=== PATIENT | male | born 1950 | race Caucasian/White ===

== ENCOUNTER → 2020-07-14 08:12 | Outpatient (CLI) | payer MEDICARE, OTHER, SELFPAY ==
--- NOTE | 2020-07-14 08:15 | US_ITS ---
PROCEDURE: US ABD. AORTA SCREENING CLINICAL INDICATION: AAA SCREENING COMPARISON: No exams were available for comparison FINDINGS: Atherosclerotic plaque involves the aorta and iliac vessels. The upper abdominal aorta measures 2.4 with the mid abdominal aorta at 2 cm cm with some mild ectasia of the lower abdominal aorta at 2.5 cm. The common iliacs demonstrate some mild plaque but no significant dilatation. IMPRESSION: Atherosclerotic changes with mild dilatation of the lower abdominal aorta at 2.5 cm. Dictated by: Haseeb Jennings MD 07/14/2020 17:28 Haseeb Jennings MD in [place] 07/14/2020 17:28
== END ==
PROVIDERS: PCP Family Medicine; Visit Provider Family Medicine
DX: Z13.6 Encounter for screening for cardiovascular disorders (principal); Z87.891 Personal history of nicotine dependence
CPT/HCPCS: 76705

== ENCOUNTER → 2020-08-11 09:17 | Outpatient (CLI) | payer MEDICARE, OTHER, SELFPAY ==
[2020-08-11 12:28] LABS: Coronavirus 19 IgG Antibody Negative (Negative); Coronavirus 19 IgM Antibody Negative (Negative)
== END ==
PROVIDERS: Visit Provider Surgery
DX: Z01.812 Encounter for preprocedural laboratory examination (principal); Z11.52 Encounter for screening for COVID-19; Z12.11 Encounter for screening for malignant neoplasm of colon; Z86.010 Personal history of colon polyps
CPT/HCPCS: 86328

== ENCOUNTER 2020-08-13 06:54 | Day surgery (SDC) | payer MEDICARE, SELFPAY ==
[2020-08-11 09:58] VITALS: BMI 19.2
[2020-08-13 07:16] VITALS: BP 156/75; PULSE 74; RESP 18; TEMP 36.1; O2SAT 99
[2020-08-13 07:54] VITALS: O2SAT 99
--- NOTE | 2020-08-13 08:20 | HMH.ANESCL ---
[facility] Anesthesia Checklist - Structural Data Admitted From: Home Planned Operative Procedure/s: colonoscopy Consent for Planned Operative Procedure(s) Verified: Yes - Airway Assessment C-Spine Mobility Assessed: Yes TMJ Mobility Assessed: Yes Dentition: Poor Dentition - Neurological Assessment Level of Consciousness: Awake, Alert, Appropriate - Anesthesia Plan Anesthesia Risk discussed: Yes Anesthesia Plan: Verified ASA Class: II Anesthesia Type: MAC [facility] History I have reviewed the patient's past medical history: Yes Medical History: Denies:: Cancer, Diabetes Mellitus Type 1, Diabetes Mellitus Type 2, Internal Pacemaker, MRSA, Seizures *Have you ever received a pneumonia vaccine?: Yes *Have you received a flu vaccine this season?: Yes Anesthesia experience/problems:: none Other Surgeries: Yes: Colonoscopy. No: Pacemaker Amputation: No Fractures: No - *Social History Last grade of school completed: High school graduate Smoking Status: Current every day smoker Tobacco Type: pipe # Packs/Day (cigarettes): 1 Alcohol Intake: never Substance Use Type: denies use *Occupational Status:: retired Housing: house Household Members: spouse, family *Travel in the last 8 weeks: None Family Hx:: No significant family history
[2020-08-13 08:35] VITALS: BP 91/61; PULSE 73; RESP 18; TEMP 36.2; O2SAT 97
--- NOTE | 2020-08-13 08:35 | P.PCN_ITS ---
- Procedure: Date: 08/13/20 Patient Date of :: 1950 Procedure Performed:: Colonoscopy with polypectomy by means other than snare Indications:: History of colon polyps Performing Provider:: Messi Shelley MD Referring Provider:: Dr. Rodriguez Sedation:: Monitored anesthesia care Procedure:: After informed consent was obtained the patient was taken to the endoscopy suite. Sedation ensued after the patient was transferred to the left lateral decubitus position. Pulse, blood pressure, and oxygen saturation were monitored throughout the procedure. Digital rectal exam revealed no significant abnormality. The colonoscope was placed in position. The entire colon was evaluated. The colonoscope was carefully removed and the patient was transfer red to recovery in stable condition. Please see findings and specimens below for detail. Findings:: Bowel preparation relatively fair Hemorrhoidal cushions with mild inflammatory changes Significant colonic spasticity (particularly sigmoid) Moderate tortuosity Small polyp at 35 cm Specimens:: Polyp at 35 cm Recommendations:: Timing of repeat colonoscopy is pending pathology but will likely be between 3-5 years secondary to history of polyps, spasticity, and tortuosity. Complications:: No immediate Estimated blood obtained (mL): 1
[2020-08-13 08:44] VITALS: BP 121/71; PULSE 68; RESP 18; O2SAT 98
[2020-08-13 08:55] VITALS: BP 95/66; PULSE 67; RESP 18; O2SAT 98
[2020-08-13 09:04] VITALS: BP 94/65; PULSE 68; RESP 18; O2SAT 96
== END 2020-08-13 09:07 | disposition home or self-care (01) ==
LOC: OUTP 06:58
PROVIDERS: PCP Family Medicine; Visit Provider Surgery
PROC: 0DJD8ZZ Inspection of Lower Intestinal Tract, Via Natural or Artificial Opening Endoscopic (ICD-10-PCS; CPT 45380; principal; 2020-08-13 08:00)
DX: Z12.11 Encounter for screening for malignant neoplasm of colon (principal); K63.5 Polyp of colon; K64.9 Unspecified hemorrhoids; K56.2 Volvulus; K58.9 Irritable bowel syndrome, unspecified; Z86.010 Personal history of colon polyps; Z72.0 Tobacco use
CPT/HCPCS: 45380; 88305

== ENCOUNTER → 2020-09-30 10:22 | Outpatient (CLI) | payer MEDICARE, SELFPAY ==
[2020-09-30 10:29] LABS: Microscopic, Urine URINE MICROSCOPIC (MICROSCOPIC)
[2020-09-30 11:00] LABS: Basophils % 0.7 % (0.1-2.0); Eosinophils # 0.3 K/mm3 (0.0-0.4); Eosinophils % 5.1 % (0.1-12.0); Hematocrit 44.6 % (42.0-52.0); Hemoglobin 14.3 g/dL (14.1-18.0); Lymphocytes # 1.7 K/mm3 (0.7-4.5); Lymphocytes % 32.3 % (10-50); Mean Corpuscular Hemoglobin 29.7 pg (27.0-31.2); Mean Corpuscular Volume 92.7 fl (80-94); Mean Platelet Volume 7.5 fl (7.4-10.4); Monocytes # 0.3 K/mm3 (0.1-1.0); Monocytes % 5.4 % (1.7-9.3); Neutrophils # 2.9 K/mm3 (1.8-7.8); Neutrophils % 56.4 % (37.0-80.0); Platelet Count 252 K/mm3 (142-424); Red Blood Count 4.81 M/mm3 (4.60-6.20); White Blood Count 5.1 K/mm3 (4.8-10.8)
[2020-09-30 11:03] LABS: Appearance,Urine CLEAR (Clear); Bilirubin,Urine Negative (Negative); Blood, Urine TRACE-I (Negative); Color,Urine YELLOW (Yellow); Glucose,Urine (UA) Negative (Negative); Ketones,Urine Negative (Negative); Leukocyte Esterase,Urine Negative (Negative); Nitrate,Urine Negative (Negative); Protein,Urine Negative (Negative); Specific Gravity, Urine >= 1.030 (1.005-1.030); Urobilinogen,Urine 0.2 EU/dl (0.2)
[2020-09-30 11:30] LABS: Chloride 108 mmol/L (98-107); Potassium 4.2 mmoL/L (3.5-5.1); Sodium 140 mmol/L (136-145)
[2020-09-30 11:33] LABS: Anion Gap 11.2 mEq/L (5-15); Blood Urea Nitrogen 16 mg/dl (9-20); Carbon Dioxide 25 mmol/L (22.0-30.0); Estimated Glomerular Filt Rate 111 ml/min (>60); GFR (African American) 135 ML/MIN (>60)
[2020-09-30 11:34] LABS: Calcium 9.4 mg/dl (8.4-10.2); Glucose 143 mg/dl (74-100)
[2020-09-30 11:39] LABS: WBC,Urine Occasional #/hpf (0-3)
[2020-09-30 11:42] LABS: Coronavirus 19 IgG Antibody Negative (Negative); Coronavirus 19 IgM Antibody Negative (Negative)
== END ==
PROVIDERS: Visit Provider Surgery
DX: K40.90 Unilateral inguinal hernia, without obstruction or gangrene, not specified as recurrent (principal); D12.6 Benign neoplasm of colon, unspecified; Z01.818 Encounter for other preprocedural examination; Z20.822 Contact with and (suspected) exposure to COVID-19
CPT/HCPCS: 36415; 80048; 81001; 85025; 86328

== ENCOUNTER 2020-10-02 06:07 | Day surgery (SDC) | payer MEDICARE, SELFPAY ==
[2020-09-30 10:47] VITALS: BMI 20.2
[2020-10-02] VITALS (11 sets, daily range): BP systolic 96–143; BP diastolic 61–88; PULSE 53–68; RESP 14–18; TEMP 36.2–36.6; O2SAT 98–100
--- NOTE | 2020-10-02 06:17 | ECG_ITS ---
APPROVED REPORT Exam: Resting ECG HR:58 bpm ECG Measurements Heart Rate 58 AXES CA 226 P 76 QRSd 102 QRS 73 QT 414 T 70 QTc 406 Conclusion Sinus bradycardia with 1st degree AV block Otherwise normal ECG Electronically signed by : Arjun Maynard, 10/02/2020 08:50:32
--- NOTE | 2020-10-02 07:13 | P.PN_ITS ---
[facility] Anesthesia Checklist - Patient Identification Patient Identification: Arm Band - Structural Data Admitted From: Home Planned Operative Procedure/s: Open inguinal hernia repair Consent for Planned Operative Procedure(s) Verified: Yes - NPO Status Verified Time NPO: 12:00 - Additional verifications Anesthesia Reactions: No Hx Blood Transfusions: No Blood Transfusion Reaction: No - Airway Assessment C-Spine Mobility Assessed: Yes TMJ Mobility Assessed: Yes Dentition: Poor Dentition - Neurological Assessment Level of Consciousness: Awake Hx Seizures: No Numbness or tingling in extremities: No - Anesthesia Plan Anesthesia Risk discussed: Yes Anesthesia Plan: Verified ASA Class: II Anesthesia Type: General [facility] History I have reviewed the patient's past medical history: Yes Medical History: Denies:: Cancer, Diabetes Mellitus Type 1, Diabetes Mellitus Type 2, Internal Pacemaker, MRSA, Seizures *Have you ever received a pneumonia vaccine?: Yes *Have you received a flu vaccine this season?: Yes Other Medical History: Denies: Blood Transfusion Reaction Anesthesia experience/problems:: None Other Surgeries: Yes: Appendectomy, Colonoscopy. No: Pacemaker Amputation: No Fractures: No - *Social History Last grade of school completed: High school graduate Smoking Status: Current every day smoker Tobacco Type: pipe # Packs/Day (cigarettes): 1 Alcohol Intake: never Substance Use Type: denies use *Occupational Status:: retired Housing: house Household Members: spouse, family *Travel in the last 8 weeks: Inside the [place] Family Hx:: No significant family history
--- NOTE | 2020-10-02 09:00 | HMH.OPNOTE ---
Date of procedure: 10/02/20 Pre-op Diagnosis:: Recurrent right inguinal hernia (initially repaired in childhood) Post-op Diagnosis:: Same Procedure performed:: Open right inguinal hernia repair Surgeon:: Messi Shelley MD Anesthesia: MELISSA Estimated blood loss (mL): 10 Operative findings:: Moderate thickening of subcutaneous tissue and external aponeurosis secondary to prior surgery Direct defect Operative note:: After informed consent was obtained the patient was taken to the operating room and placed in the supine position. General anesthesia was induced and his abdomen and scrotum/groin were prepped and draped in a sterile fashion. After infiltration with local anesthetic an oblique incision was made in the right groin. The deep subcutaneous tissue was dissected with electrocautery through Rachel's fascia. Significant soft tissue thickening noted. The external aponeurosis which was also very thickened (likely secondary to prior operative intervention) was opened with Metzenbaum scissors to the level of the external ring. The contents of the canal were carefully elevated. No obvious indirect defect noted. A palpable direct defect along the inferior margin of the canal was noted. A PerFix plug was secured with interrupted Ethibond within the defect. The PerFix overlay was then secured to the shelving edge inferiorly and fascial margin superiorly with interrupted 2-0 Ethibond. The external aponeurosis was reapproximated with running Vicryl suture. Rachel's fascia was reapproximated in a similar manner. Skin was then closed with 4-0 Monocryl in a running subcuticular fashion. Steri-Strips were applied and the patient's anesthetic agents were reversed. He was extubated prior to transfer to recovery. Condition: stable Disposition: PACU Specimens:: None Complications:: No immediate
--- NOTE | 2020-10-02 09:01 | HMH.ANESI ---
[facility] Anesthesia Record Part I Intake, IV Amount: 400 Estimated blood loss (mL): 10 Urine output (mL): 75 Blood Pressure: 124/66 SaO2: 100 Pulse Rate: 60 Respiratory Rate: 14 Temperature: 97.5 F Patient is:: Drowsy Stable to PACU at:: 08:58
[2020-10-02 09:17] LABS: Microscopic,Cath URINE MICROSCOPIC (MICROSCOPIC)
[2020-10-02 09:42] LABS: Appearance,Urine/Cath CLEAR (Clear); Bilirubin,Cath Negative (Negative); Blood, Urine/Cath TRACE-I (Negative); Color,Urine/Cath YELLOW (Yellow); Glucose,Urine/Cath (UA) Negative (Negative); Ketones,Urine/Cath Negative (Negative); Leukocyte Esterase,Cath Negative (Negative); Nitrate,Cath Negative (Negative); PH,Urine/Cath 6.5 (5.0-8.5); Protein,Urine/Cath Negative (Negative); Specific Gravity, Urine/Cath 1.025 (1.005-1.030); Urobilinogen,Cath 0.2 EU/dl (0.2)
[2020-10-02 09:54] LABS: RBC,Urine/Cath Occasional # /hpf (0-3); WBC,Urine/Cath Occasional #/hpf (0-3)
--- NOTE | 2020-10-02 11:32 | HMH.ANESII ---
[facility] Anesthesia Record Part II Discharge Time: 09:28 Destination: Surgical Day Care (OP Surgery) PACU nurse assessment reviewed?: Yes Patient Condition:: Good Anesthesia Complications:: None Swallowing reflex intact?: Yes Cyanosis?: No Blood Pressure: 127/88 Pulse Rate: 68 Temperature: 97.2 F Mental Status: Alert & Oriented Pain level:: 0 Nausea and/or vomitting:: None Intake, IV Amount: 800
== END 2020-10-02 10:14 | disposition home or self-care (01) ==
PROVIDERS: PCP Family Medicine; Visit Provider Surgery
PROC: (CPT 49520; principal; 2020-10-02 07:30)
DX: K40.91 Unilateral inguinal hernia, without obstruction or gangrene, recurrent (principal)
CPT/HCPCS: 49520; 81001; 96374; J0131

== ENCOUNTER 2023-03-01 21:22 | Observation (INO) | payer MEDICARE, SELFPAY ==
[2023-03-01 21:22] VITALS: BP 152/98; PULSE 76; RESP 18; TEMP 36.4; O2SAT 96
[2023-03-01 21:29] VITALS: BMI 18.2
--- NOTE | 2023-03-01 21:30 | XR_ITS ---
PROCEDURE INFORMATION: Exam: XR Pelvis Exam date and time: 03/01/2023 9:28 PM Age: 73 years old Clinical indication: Injury or trauma; Blunt trauma (contusions or hematomas); Does not apply; Pelvic region; Patient HX: Fall from roof TECHNIQUE: Imaging protocol: Radiologic exam of the pelvis. Views: 1 or 2 view. COMPARISON: No relevant prior studies available. FINDINGS: Bones/joints: There are minimal degenerative changes of the hips. There are partially visualized degenerative changes of the lumbar spine. No acute fracture or dislocation is identified. Soft tissues: Unremarkable. IMPRESSION: Degenerative disease without acute injury identified.
--- NOTE | 2023-03-01 21:30 | XR_ITS ---
PROCEDURE INFORMATION: Exam: XR Chest Exam date and time: 03/01/2023 9:27 PM Age: 73 years old Clinical indication: Injury or trauma; Blunt trauma (contusions or hematomas); Patient HX: Fall from roof TECHNIQUE: Imaging protocol: Radiologic exam of the chest. Views: 1 view. COMPARISON: No relevant prior studies available. FINDINGS: Lungs: Unremarkable. No consolidation. Pleural spaces: Unremarkable. No pleural effusion. No pneumothorax. Heart/Mediastinum: Unremarkable. No cardiomegaly. Bones/joints: Unremarkable. IMPRESSION: No acute findings.
--- NOTE | 2023-03-01 21:31 | CT_ITS ---
PROCEDURE INFORMATION: Exam: CT Lumbar Spine Without Contrast Exam date and time: 03/01/2023 9:59 PM Age: 73 years old Clinical indication: Injury or trauma; Patient HX: Fall from roof TECHNIQUE: Imaging protocol: Computed tomography of the lumbar spine without contrast. Radiation optimization: All CT scans at this facility use at least one of these dose optimization techniques: automated exposure control; mA and/or kV adjustment per patient size (includes targeted exams where dose is matched to clinical indication); or iterative reconstruction. REPORTING DATA: Count of CT and Cardiac NM exams in prior 12 months: This patient has received 0 known CTs and 0 known cardiac nuclear medicine studies in the 12 months prior to the current study. COMPARISON: CR XR PELVIS 1-2V 03/01/2023 9:28 PM FINDINGS: Bones/joints: There is loss of intervertebral disc space and vacuum phenomenon most pronounced at L4-L5 and L5-S1. Vasculature: There is atherosclerotic disease of the visualized aorta and its major branch vessels. Soft tissues: Unremarkable. IMPRESSION: Multilevel degenerative change without acute injury identified.
--- NOTE | 2023-03-01 21:31 | XR_ITS ---
PROCEDURE INFORMATION: Exam: XR Left Tibia and Fibula Exam date and time: 03/01/2023 9:31 PM Age: 73 years old Clinical indication: Injury or trauma; Blunt trauma; Lower leg; Left; Patient HX: Fall from roof TECHNIQUE: Imaging protocol: Radiologic exam of the left tibia and fibula. Views: 2 views. COMPARISON: No relevant prior studies available. FINDINGS: Bones/joints: Partial visualization nondisplaced calcaneal fracture. No additional fracture or dislocation. Soft tissues: Normal. IMPRESSION: Nondisplaced calcaneal fracture which is partially imaged.
--- NOTE | 2023-03-01 21:31 | XR_ITS ---
PROCEDURE INFORMATION: Exam: XR Right Tibia and Fibula Exam date and time: 03/01/2023 9:31 PM Age: 73 years old Clinical indication: Injury or trauma; Blunt trauma; Lower leg; Right; Patient HX: Fall from roof TECHNIQUE: Imaging protocol: Radiologic exam of the right tibia and fibula. Views: 2 views. COMPARISON: No relevant prior studies available. FINDINGS: Bones/joints: Partially visualized nondisplaced calcaneal fracture. No additional fracture or dislocation is seen. Soft tissues: Normal. IMPRESSION: Partially visualized nondisplaced calcaneal fracture.
--- NOTE | 2023-03-01 21:31 | XR_ITS ---
PROCEDURE INFORMATION: Exam: XR Left Foot Exam date and time: 03/01/2023 9:31 PM Age: 73 years old Clinical indication: Injury or trauma; Blunt trauma; Foot; Left; Patient HX: Fall from roof TECHNIQUE: Imaging protocol: Radiologic exam of the left foot. Views: 3 or more views. COMPARISON: No relevant prior studies available. FINDINGS: Bones/joints: Impacted and comminuted fracture of the calcaneus is better evaluated on radiographs of the ankle. Soft tissues: There is pronounced soft tissue swelling of the lateral aspect foot. IMPRESSION: Impacted and comminuted fracture of the calcaneus.
--- NOTE | 2023-03-01 21:31 | XR_ITS ---
PROCEDURE INFORMATION: Exam: XR Right Ankle Exam date and time: 03/01/2023 9:31 PM Age: 73 years old Clinical indication: Injury or trauma; Blunt trauma; Ankle; Right; Patient HX: Fall from roof TECHNIQUE: Imaging protocol: Radiologic exam of the right ankle. Views: 3 or more views. COMPARISON: No relevant prior studies available. FINDINGS: Bones/joints: Partially visualized nondisplaced fracture of the calcaneus. Soft tissues: Moderate soft tissue swelling about the foot. No additional fracture or dislocation seen. IMPRESSION: Partially visualized nondisplaced fracture of the calcaneus.
--- NOTE | 2023-03-01 21:31 | XR_ITS ---
PROCEDURE INFORMATION: Exam: XR Left Ankle Exam date and time: 03/01/2023 9:31 PM Age: 73 years old Clinical indication: Injury or trauma; Blunt trauma; Ankle; Left; Patient HX: Fall from roof TECHNIQUE: Imaging protocol: Radiologic exam of the left ankle. Views: 3 or more views. COMPARISON: No relevant prior studies available. FINDINGS: Bones/joints: There is a small superior calcaneal enthesophyte. There is an impacted comminuted fracture of the calcaneus with associated soft tissue swelling. Soft tissues: See Bones/joints finding. IMPRESSION: There is an impacted comminuted fracture of the calcaneus with associated soft tissue swelling.
--- NOTE | 2023-03-01 21:31 | XR_ITS ---
PROCEDURE INFORMATION: Exam: XR Right Foot Exam date and time: 03/01/2023 9:31 PM Age: 73 years old Clinical indication: Injury or trauma; Blunt trauma; Foot; Right; Patient HX: Fall from roof; Additional info: [place] TECHNIQUE: Imaging protocol: Radiologic exam of the right foot. Views: 3 or more views. COMPARISON: No relevant prior studies available. FINDINGS: Bones/joints: There is a nondisplaced fracture of the posterosuperior calcaneus. Additional lucency through the mid calcaneus suggest additional fracture lines. Soft tissues: Normal. IMPRESSION: Nondisplaced fracture of the calcaneus.
[2023-03-01 21:38] LABS: Basophils # 0.1 K/mm3 (0-0.2); Basophils % 0.7 % (0.1-2.0); Eosinophils # 0.2 K/mm3 (0.0-0.4); Eosinophils % 2.3 % (0.1-12.0); Hematocrit 44.2 % (42.0-52.0); Hemoglobin 13.8 g/dL (14.1-18.0); Lymphocytes % 28.5 % (10-50); Mean Corpuscular HGB Conc 31.3 g/dL (31.8-35.4); Mean Corpuscular Hemoglobin 28.6 pg (27.0-31.2); Mean Corpuscular Volume 91.5 fl (80-94); Mean Platelet Volume 7.8 fl (7.4-10.4); Monocytes # 0.4 K/mm3 (0.1-1.0); Monocytes % 5.7 % (1.7-9.3); Neutrophils # 4.3 K/mm3 (1.8-7.8); Neutrophils % 62.7 % (37.0-80.0); Platelet Count 283 K/mm3 (142-424); Red Blood Count 4.84 M/mm3 (4.60-6.20); Red Cell Distribution Width 13.9 % (11.5-17.5); White Blood Count 6.9 K/mm3 (4.8-10.8)
--- NOTE | 2023-03-01 21:44 | HMH.EDTRAUMA ---
Discharge Plan Disposition Patient Disposition: Admitted as Observation Clinical Impressions Clinical Impression: Calcaneus fracture, left, Calcaneus fracture, right Discharge ED Provider: Naveen Alves Trauma Alert The Trauma Alert Section documentation for [id number] SarbjitJhony was populated with data that defaulted in from the pulp and paper tester in the Trauma Alert Triage Assessment on _Reg Service Date] to provide within this report, the status of the patient on arrival to the ED during the Trauma Alert. Height/Weight/BMI Height: 1.73 m Weight: 54.431 kg Weight Measurement Method: Stated by Patient Body Mass Index: 18.2 Trauma HPI General Chief Complaint: Trauma Alert Stated Complaint: trauma/fall from roof Time Seen by Provider: 03/01/23 21:22 History of Present Illness HPI narrative: Patient is a 73-year-old male with no pertinent past medical history presents emergency department for evaluation of traumatic injury sustained in a fall. Patient was approximate 12 feet high on a roof when he fell off landing on both of his ankles. Patient denies hitting his back, loss of consciousness, striking his head, blood thinners, trauma to his chest or arms. He states that this whole impact was his bilateral heels. He had instant inability to bear weight and severe pain in bilateral feet. Denies back pain. No other acute complaints at this time. Related Data Allergies Allergy/AdvReac Type Severity Reaction Status Date / Time No Known Allergies Allergy Verified 10/07/20 14:26 [facility] Disclaimer: The information contained in this section may have been updated after the patient was seen, as this information can be updated by other users. Social History Smoking Status: Current every day smoker tobacco type: pipe second hand exposure: Yes alcohol intake: never substance use type: denies use current occupational status: retired Travel in the last 8 weeks: None household members: spouse and family housing: house current occupational exposures/hazards: No caffeine: Yes ROS Obtained: Yes Systems reviewed as appropriate & no additional complaints except as documented Physical Exam General General appearance: alert and in no apparent distress Head Head exam: atraumatic and normocephalic Eye Eye exam: Present PERRL and EOMI ENT ENT exam: Present mucous membranes moist Neck Neck exam: Present normal inspection and full ROM; Absent tenderness Chest Chest inspection: Present normal inspection and symmetric chest wall rise Respiratory Respiratory exam: Present normal lung sounds bilaterally; Absent respiratory distress Cardiovascular Cardiovascular exam: Present regular rate and normal rhythm Abdominal Exam Abdominal exam: Present soft; Absent tenderness Extremities Exam Extremities exam: Present other (Circumferential swelling and tenderness bilateral ankles. Palpable right dorsal pedal pulse, dopplerable left dorsal pedal pulse. Palpable bilateral posterior tibial pulses.) Back Exam Back exam: Present other (No spinal tenderness) Neurological Exam Neurological exam: Present alert, oriented X3 and CN II-XII intact Psychiatric Psychiatric exam: Present normal affect Skin Skin exam: Present warm and dry Medical Decision Making Alexander Inquiry Pt receiving controlled substance: No Vital Signs: 03/01/23 21:22 03/01/23 22:10 03/01/23 22:30 Temperature 97.6 F Temperature Source Oral Pulse Rate 82 74 Pulse Rate [Left] 76 Respiratory Rate 18 17 10 L Blood Pressure 147/87 H 150/79 H Blood Pressure [Left Arm] 152/98 H Blood Pressure Mean 113 Blood Pressure Mean [Left Arm] 116 Blood Pressure Source [Left Arm] Manual Cuff/ Auscultation Blood Pressure Position [Left Arm] Supine 02 Sat by Pulse Oximetry 96 98 96 Oxygen Delivery Method Room Air Room Air 03/01/23 22:52 Temperature 97.9 F Temperature Source Oral Pulse Rate 76 Pulse Rate [Left] Respirato
[2023-03-01 21:46] VITALS: BMI 18.2
[2023-03-01 21:49] LABS: Anion Gap 12.3 mEq/L (5-15); Blood Urea Nitrogen 18 mg/dl (9-20); Calcium 9.2 mg/dl (8.4-10.2); Carbon Dioxide 27 mmol/L (22.0-30.0); Chloride 107 mmol/L (98-107); Creatinine Clearance Estimated 51 mL/min (50-200); Estimated Glomerular Filt Rate 83 ml/min (>60); GFR (African American) 100 ML/MIN (>60); Glucose 110 mg/dl (74-100); Potassium 4.3 mmoL/L (3.5-5.1); Sodium 142 mmol/L (136-145)
[2023-03-01 21:54] LABS: INR 1.02 (0.9-1.1)
--- NOTE | 2023-03-01 21:57 | XR_ITS ---
PROCEDURE INFORMATION: Exam: XR Left Calcaneus Exam date and time: 03/01/2023 9:56 PM Age: 73 years old Clinical indication: Injury or trauma; Blunt trauma; Heel; Left; Patient HX: Fall from roof TECHNIQUE: Imaging protocol: Radiologic exam of the left calcaneus. Views: 2 or more views. COMPARISON: CR XR ANKLE LT MIN 3V 03/01/2023 9:31 PM FINDINGS: Bones/joints: There is a mildly impacted comminuted fracture of the calcaneus. No additional fracture or dislocation is seen. Soft tissues: There moderate soft tissue swelling about the heel. IMPRESSION: There is a mildly impacted comminuted fracture of the calcaneus.
--- NOTE | 2023-03-01 21:57 | XR_ITS ---
PROCEDURE INFORMATION: Exam: XR Right Calcaneus Exam date and time: 03/01/2023 9:56 PM Age: 73 years old Clinical indication: Injury or trauma; Blunt trauma; Heel; Right; Patient HX: Fall from roof TECHNIQUE: Imaging protocol: Radiologic exam of the right calcaneus. Views: 2 or more views. COMPARISON: CR XR ANKLE RT MIN 3V 03/01/2023 9:31 PM FINDINGS: Bones/joints: Comminuted and impacted fracture of the calcaneus. No additional fractures identified. Soft tissues: Moderate soft tissue swelling about the foot and ankle. IMPRESSION: Comminuted and impacted fracture of the calcaneus.
--- NOTE | 2023-03-01 21:57 | PC.NURSE ---
patient to CT
[2023-03-01 22:10] VITALS: BP 147/87; PULSE 82; RESP 17; O2SAT 98
--- NOTE | 2023-03-01 22:15 | PC.NURSE ---
paging dr sultana @ this time
--- NOTE | 2023-03-01 22:18 | PC.NURSE ---
on phone with dr sultana
[2023-03-01 22:30] VITALS: BP 150/79; PULSE 74; RESP 10; O2SAT 96
--- NOTE | 2023-03-01 22:32 | CT_ITS ---
PROCEDURE INFORMATION: Exam: CT Left Lower Extremity Without Contrast, Ankle Exam date and time: 03/01/2023 10:46 PM Age: 73 years old Clinical indication: Injury or trauma and abnormal findings; Fall; Abnormal imaging study; XR ankle/heel; Blunt trauma; Left; Additional info: Bilateral calcaneus fractures TECHNIQUE: Imaging protocol: CT of the left lower extremity without contrast was performed. Exam focused on the ankle. 3D rendering (Not supervised by radiologist): MIP and/or 3D reconstructed images were created by the technologist. Radiation optimization: All CT scans at this facility use at least one of these dose optimization techniques: automated exposure control; mA and/or kV adjustment per patient size (includes targeted exams where dose is matched to clinical indication); or iterative reconstruction. REPORTING DATA: Count of CT and Cardiac NM exams in prior 12 months: This patient has received 0 known CTs and 0 known cardiac nuclear medicine studies in the 12 months prior to the current study. COMPARISON: CR XR ANKLE LT MIN 3V 03/01/2023 9:31 PM FINDINGS: Bones/joints: There is an impacted comminuted fracture of the calcaneus. No additional fracture or dislocation is seen. There is extensive soft tissue swelling. Soft tissues: See Bones/joints finding. IMPRESSION: Impacted and comminuted fracture of the calcaneus.
--- NOTE | 2023-03-01 22:32 | CT_ITS ---
PROCEDURE INFORMATION: Exam: CT Right Lower Extremity Without Contrast, Ankle Exam date and time: 03/01/2023 10:48 PM Age: 73 years old Clinical indication: Injury or trauma and abnormal findings; Fall; Abnormal imaging study; XR ankle/heel; Blunt trauma; Right; Additional info: Bilateral calcaneus fractures TECHNIQUE: Imaging protocol: CT of the right lower extremity without contrast was performed. Exam focused on the ankle. Radiation optimization: All CT scans at this facility use at least one of these dose optimization techniques: automated exposure control; mA and/or kV adjustment per patient size (includes targeted exams where dose is matched to clinical indication); or iterative reconstruction. REPORTING DATA: Count of CT and Cardiac NM exams in prior 12 months: This patient has received 0 known CTs and 0 known cardiac nuclear medicine studies in the 12 months prior to the current study. COMPARISON: CR XR ANKLE RT MIN 3V 03/01/2023 9:31 PM FINDINGS: Bones/joints: There is a comminuted and impacted fracture of the calcaneus with extensive associated soft tissue swelling. No additional fracture or dislocation is. Soft tissues: See Bones/joints finding. IMPRESSION: Impacted and comminuted fracture of the calcaneus.
[2023-03-01 22:52] VITALS: BP 145/71; PULSE 76; RESP 17; TEMP 36.6; O2SAT 97
--- NOTE | 2023-03-01 22:56 | PC.NURSE ---
Report has been called. Awaiting for 2nd floor transport
--- NOTE | 2023-03-01 23:09 | EXP.HP ---
History of Present Illness *Admission Date: 03/01/23 *Reason for visit:: bilateral calcaneus fracture *History of present illness: 73 year old male presented to the ED after falling 12 feet from his roof. Denies PMHX or medication use. Pt states he was fixing roof and slide onto his rectum. The pt then slide off the roof and landed on his feet standing. On presentation to the ED the patient was c/o ankle pain. No other c/o pain or injury. Full trauma imaging was ordered chest, pelvis, lumbar spine unremarkable for injury. The left ankle CT revealed impacted and comminuted fracture of the calcaneus. The right ankle revealed impacted and comminuted fracture of the calcaneus. Lab workup is unremarkable. Dr. Garcia spoke with Dr. Willoughby regrading orthopedic consultation. The patient was placed into bilateral ankle splints and will see Dr. Willoughby in the outpatient clinic for surgical evaluation. The patient is to be non weight bearing on the right foot and only weight bearing with the left toe on the left foot. The ED physician consulted the hospitalist team for possible admission. Since the patient is unable to ambulate safely at home due to lack of weight bearing assistance and restrictions, he will be admitted for physical therapy consultation and pain management. [facility] Disclaimer: The information contained in this section may have been updated after the patient was seen, as this information can be updated by other users. Medical History (Updated 03/02/23 @ 10:37 by Judd Willoughby DO) Macular degeneration Surgical History (Updated 03/01/23 @ 23:46 by Glory Magdaleno RN) H/O hernia repair History of appendectomy Family History (Updated 03/01/23 @ 23:46 by Glory Magdaleno RN) No significant family history Social History (Updated 03/01/23 @ 23:46 by Glory Magdaleno RN) Smoking Status: Current every day smoker tobacco type: pipe second hand exposure: Yes alcohol intake: never substance use type: denies use current occupational status: retired Travel in the last 8 weeks: None household members: spouse and family housing: house current occupational exposures/hazards: No caffeine: Yes Review of Systems Review of Systems Review of systems:: pertinent systems reviewed and negative unless documented below *Cardiovascular Cardiovascular: Reports system reviewed and no additional complaints, except as documented *Respiratory Respiratory: Reports system reviewed and no additional complaints, except as documented *Gastrointestinal Gastrointestinal: Reports system reviewed and no additional complaints, except as documented *Genitourinary Genitourinary: Reports system reviewed and no additional complaints, except as documented *Musculoskeletal Musculoskeletal: Reports limited range of motion (bilateral ankles) *Neurologic Neurologic: Reports system reviewed and no additional complaints, except as documented Meds Home Medications and Allergies Home Medications Medication Instructions Recorded Confirmed Type hydrocodone 5 mg-acetaminophen 325 1 tab PO Q6HP PRN Moderate Pain 03/02/23 Rx mg tablet (4-6) 3 days #12 tabs New Prescriptions to Start Prescriptions: hydrocodone-acetaminophen Vladimir Chung Allergies Allergy/AdvReac Type Severity Reaction Status Date / Time No Known Allergies Allergy Verified 10/07/20 14:26 Exam Data for Last 24 hours Vital signs and Labs for Last 24 Hours: Temp Pulse Resp BP Pulse Ox O2 Del Method 97.9 F 76 17 145/71 H 96 Room Air 03/01/23 22:52 03/01/23 22:52 03/01/23 22:52 03/01/23 22:52 03/01/23 22:30 03/01/23 22:52 Laboratory Results - last 24 hr 03/01/23 21:30: WBC 6.9, RBC 4.84, Hgb 13.8 L, Hct 44.2, MCV 91.5, MCH 28.6, MCHC 31.3 L, RDW 13.9, Plt Count 283, MPV 7.8, Neut % (Auto) 62.7, Lymph % (Auto) 28.5, [place] % (Auto) 5.7, Eos % (Auto) 2.3, Baso % (Auto) 0.7, Neut # (Auto) 4.3, Lymph # (Auto) 2.0, [place] # (Auto) 0.4, Eo
--- NOTE | 2023-03-01 23:24 | PC.NURSE ---
Bilateral foot/ankle splints applied to patient by Errol Barton. +PMS
--- NOTE | 2023-03-01 23:24 | PC.NURSE ---
Both legs placed in a short leg splint per Dr. Alves. Pt given instructions on care. CR
--- NOTE | 2023-03-01 23:29 | PC.NURSE ---
Pt arrived to floor via stretcher @ 2650
[2023-03-02] VITALS: BP 137/80; PULSE 74; RESP 30; TEMP 36.6; O2SAT 98; BMI 18.4
[2023-03-02 04:00] VITALS: BP 133/73; PULSE 64; RESP 20; TEMP 36.7; O2SAT 95; BMI 18.4
--- NOTE | 2023-03-02 04:22 | PC.NURSE ---
NO ACUTE CHANGES SINCE PT ARRIVE TO THE FLOOR. HE HAS C/O PAIN X2 THIS SHIFT AND HAS BEEN MEDICATED PER MAR. PT STATED THAT HIS LEFT FOOT HURTS WORSE THAN THE RIGHT. PILLOW PLACED UNDER HIS LEGS TO ELEVATE HEELS OFF OF THE BED. VSS. NO OTHER NEEDS OR CONCERNS VOICED AT THIS TIME.
[2023-03-02 07:16] LABS: Basophils % 0.4 % (0.1-2.0); Eosinophils % 0.1 % (0.1-12.0); Lymphocytes # 0.8 K/mm3 (0.7-4.5); Lymphocytes % 9.7 % (10-50); Mean Corpuscular HGB Conc 31.9 g/dL (31.8-35.4); Mean Corpuscular Hemoglobin 29.4 pg (27.0-31.2); Monocytes # 0.5 K/mm3 (0.1-1.0); Monocytes % 6.5 % (1.7-9.3); Neutrophils # 6.8 K/mm3 (1.8-7.8); Neutrophils % 83.3 % (37.0-80.0); Platelet Count 216 K/mm3 (142-424); Red Blood Count 4.24 M/mm3 (4.60-6.20); Red Cell Distribution Width 13.9 % (11.5-17.5); White Blood Count 8.2 K/mm3 (4.8-10.8)
[2023-03-02 07:21] LABS: Chloride 103 mmol/L (98-107); Potassium 4.1 mmoL/L (3.5-5.1); Sodium 137 mmol/L (136-145)
[2023-03-02 07:24] LABS: Anion Gap 10.1 mEq/L (5-15); Blood Urea Nitrogen 18 mg/dl (9-20); Calcium 8.8 mg/dl (8.4-10.2); Carbon Dioxide 28 mmol/L (22.0-30.0); Creatinine Clearance Estimated 51 mL/min (50-200); Estimated Glomerular Filt Rate 95 ml/min (>60); GFR (African American) 115 ML/MIN (>60); Glucose 138 mg/dl (74-100)
--- NOTE | 2023-03-02 07:56 | HMH.PHAINT1 ---
Pharmacy Intervention Comments: Medication history complete, Patient confirmed he does not take any medications at home. - Hodan Wall, PharmD Candidate 2023
[2023-03-02 08:00] VITALS: BP 122/68; PULSE 73; RESP 20; TEMP 36.5; O2SAT 93
[2023-03-02 08:06] LABS: Hemoglobin 12.5 g/dL (14.1-18.0)
--- NOTE | 2023-03-02 08:34 | SW/DCPLANNER ---
I spoke with this patient regarding plans once medically stable for discharge. Patient stated that he resides at home with his , a roommate and his sister is flying in from [place] to assist him at home. PT/OT will evaluate patient today. Patient is NOT interested in rehab or home health services at this time. Patient stated that he feels more than confident to return home w/ his family. I will follow up with patient this afternoon once MD rounds. Patient is expecting to discharge home today.
--- NOTE | 2023-03-02 10:17 | EXP.DC.SUM ---
General Admission date:: 03/01/23 Discharge date: 03/02/23 HPI HPI HPI: 73 year old male presented to the ED after falling 12 feet from his roof. Denies PMHX or medication use. Pt states he was fixing roof and slide onto his rectum. The pt then slide off the roof and landed on his feet standing. On presentation to the ED the patient was c/o ankle pain. No other c/o pain or injury. Full trauma imaging was ordered chest, pelvis, lumbar spine unremarkable for injury. The left ankle CT revealed impacted and comminuted fracture of the calcaneus. The right ankle revealed impacted and comminuted fracture of the calcaneus. Lab workup is unremarkable. Dr. Garcia spoke with Dr. Willoughby regrading orthopedic consultation. The patient was placed into bilateral ankle splints and will see Dr. Willoughby in the outpatient clinic for surgical evaluation. The patient is to be non weight bearing on the right foot and only weight bearing with the left toe on the left foot. The ED physician consulted the hospitalist team for possible admission. Since the patient is unable to ambulate safely at home due to lack of weight bearing assistance and restrictions, he will be admitted for physical therapy consultation and pain management. Hospital Course Hospital Course Hospital Course: Mr. Schaffer is a 73 year old male presented to the ED after falling 12 feet from his roof. Pt states he was fixing roof and slide onto his rectum. The pt then slide off the roof and landed on his feet standing. On presentation to the ED the patient was c/o ankle pain. No other c/o pain or injury. Full trauma imaging was ordered chest, pelvis, lumbar spine unremarkable for injury. The left ankle CT revealed impacted and comminuted fracture of the calcaneus. The right ankle revealed impacted and comminuted fracture of the calcaneus. Lab workup is unremarkable. ER contacted Dr. Willoughby regarding consultation. Patient was placed in bilateral ankle splints and recommended being seen in outpatient clinic for follow-up and surgical planning. Patient unable to discharge home unfortunately overnight. Was observed overnight due to his nonweightbearing status on bilateral lower extremities. Stable in the morning for discharge home with assistance from family. Problems addressed as follows: CALCANEUS FRACTURE LEFT & RIGHT -Fell 12 feet from roof and landed standing. Was complaining of bilateral ankle pain. Imaging obtained in the ER with x-ray showing bilateral calcaneal comminuted fractures, right worse than left. Placed in bilateral ankle splints. Orthopedics was consulted. Patient has scheduled follow-up tomorrow for surgical planning. Given pain and inability to bear weight, was monitored overnight for pain management. Wheelchair ordered. Will discharge home with short course of opiate therapy for bilateral heel fractures. Patient is nonweightbearing on his feet. Encouraged to keep appointment tomorrow as he will need surgery on his right foot and is likely to be nonweightbearing for the next 6 to 8 weeks. Vitals remained stable. Spent 40 minutes in discharge counseling and direct care with patient. Exam Data for Last 24 hours Vital signs and Labs for Last 24 Hours: Temp Pulse Resp BP Pulse Ox O2 Del Method 97.7 F 73 20 122/68 93 L Room Air 03/02/23 08:00 03/02/23 08:00 03/02/23 08:00 03/02/23 08:00 03/02/23 08:00 03/02/23 08:51 Laboratory Results - last 24 hr 03/01/23 21:30: WBC 6.9, RBC 4.84, Hgb 13.8 L, Hct 44.2, MCV 91.5, MCH 28.6, MCHC 31.3 L, RDW 13.9, Plt Count 283, MPV 7.8, Neut % (Auto) 62.7, Lymph % (Auto) 28.5, [place] % (Auto) 5.7, Eos % (Auto) 2.3, Baso % (Auto) 0.7, Neut # (Auto) 4.3, Lymph # (Auto) 2.0, [place] # (Auto) 0.4, Eos # (Auto) 0.2, Baso # (Auto) 0.1, PT 11.0, INR 1.02, Sodium 142, Potassium 4.3, Chloride 107, Carbon Dioxide 27, Anion Gap 12.3, BUN 18, Creatinine 0.90, Estimated Creat Clear 51, Estimated GFR 83, Est GFR ( Amer) 100, Glucose 110 H, Calcium 9.2
--- NOTE | 2023-03-02 10:36 | EXP.ORTH.CON ---
History of Present Illness *Admission Date: 03/01/23 *History of present illness: 73 year old male presented to the ED after falling 12 feet from his roof. Denies PMHX or medication use. Pt states he was fixing roof and slide onto his rectum. The pt then slide off the roof and landed on his feet standing. On presentation to the ED the patient was c/o ankle pain. No other c/o pain or injury. Full trauma imaging was ordered chest, pelvis, lumbar spine unremarkable for injury. The left ankle CT revealed impacted and comminuted fracture of the calcaneus. The right ankle revealed impacted and comminuted fracture of the calcaneus. Lab workup is unremarkable. Dr. Garcia spoke with Dr. Willoughby regrading orthopedic consultation. The patient was placed into bilateral ankle splints and will see Dr. Willoughby in the outpatient clinic for surgical evaluation. The patient is to be non weight bearing on the right foot and only weight bearing with the left toe on the left foot. The ED physician consulted the hospitalist team for possible admission. Since the patient is unable to ambulate safely at home due to lack of weight bearing assistance and restrictions, he will be admitted for physical therapy consultation and pain management. [facility] Disclaimer: The information contained in this section may have been updated after the patient was seen, as this information can be updated by other users. Medical History (Updated 03/02/23 @ 10:37 by Judd Willoughby DO) Macular degeneration Surgical History (Updated 03/01/23 @ 23:46 by Glory Magdaleno RN) H/O hernia repair History of appendectomy Family History (Updated 03/01/23 @ 23:46 by Glory Magdaleno RN) Other No significant family history Social History (Updated 03/01/23 @ 23:46 by Glory Magdaleno RN) Smoking Status: Current every day smoker tobacco type: pipe second hand exposure: Yes alcohol intake: never substance use type: denies use current occupational status: retired Travel in the last 8 weeks: None household members: spouse and family housing: house current occupational exposures/hazards: No caffeine: Yes Review of Systems *Neurologic Neurologic: Reports system reviewed and no additional complaints, except as documented Meds Home Medications and Allergies New Prescriptions to Start Prescriptions: Allergies Allergy/AdvReac Type Severity Reaction Status Date / Time No Known Allergies Allergy Verified 10/07/20 14:26 Ortho Exam (Inpt) Vital signs and Labs for Last 24 Hours: Temp Pulse Resp BP Pulse Ox O2 Del Method 97.7 F 73 20 122/68 93 L Room Air 03/02/23 08:00 03/02/23 08:00 03/02/23 08:00 03/02/23 08:00 03/02/23 08:00 03/02/23 08:51 Laboratory Results - last 24 hr 03/01/23 21:30: WBC 6.9, RBC 4.84, Hgb 13.8 L, Hct 44.2, MCV 91.5, MCH 28.6, MCHC 31.3 L, RDW 13.9, Plt Count 283, MPV 7.8, Neut % (Auto) 62.7, Lymph % (Auto) 28.5, [place] % (Auto) 5.7, Eos % (Auto) 2.3, Baso % (Auto) 0.7, Neut # (Auto) 4.3, Lymph # (Auto) 2.0, [place] # (Auto) 0.4, Eos # (Auto) 0.2, Baso # (Auto) 0.1, PT 11.0, INR 1.02, Sodium 142, Potassium 4.3, Chloride 107, Carbon Dioxide 27, Anion Gap 12.3, BUN 18, Creatinine 0.90, Estimated Creat Clear 51, Estimated GFR 83, Est GFR ( Amer) 100, Glucose 110 H, Calcium 9.2 03/02/23 06:38: WBC 8.2, RBC 4.24 L, Hgb 12.5 L, Hct 39.0 L, MCV 92.0, MCH 29.4, MCHC 31.9, RDW 13.9, Plt Count 216, MPV 8.0, Neut % (Auto) 83.3 H, Lymph % (Auto) 9.7 L, [place] % (Auto) 6.5, Eos % (Auto) 0.1, Baso % (Auto) 0.4, Neut # (Auto) 6.8, Lymph # (Auto) 0.8, [place] # (Auto) 0.5, Eos # (Auto) 0.0, Baso # (Auto) 0.0, Sodium 137, Potassium 4.1, Chloride 103, Carbon Dioxide 28, Anion Gap 10.1, BUN 18, Creatinine 0.80, Estimated Creat Clear 51, Estimated GFR 95, Est GFR ( Amer) 115, Glucose 138 H D, Calcium 8.8 I & O for Labs for Last 24 Hours: Intake & Output 02/27/23 02/28/23 03/01/23 03/02/23 23:59 23:59 23:59 23:59 Intake Total
--- NOTE | 2023-03-02 11:13 | CARE MANAGER ---
Patient will require a w/c due to bilateral calcaneus fractures. He is unable to ambulate with a walker or crutches due to non-weight bearing status.
--- NOTE | 2023-03-02 12:08 | HMH.PTEV ---
Physical Therapy Evaluation Rehab PT IP Evaluation Start: 03/01/23 22:43 Freq: ONCE Status: Active Protocol: Document 03/02/23 09:02 MICKIE (Rec: 03/02/23 12:08 MICKIE [id number]) Subjective/History History History 73 yowm adm to [facility] after fall off of his roof ~ 12 ft with resulting B calcaneus fxs. Per ortho, pt is NWB to B LE. He reports he lives alone, no steps to enter the home and he is generally independent with all mobility without AD. He reports he can have assistance available when he goes home. Subjective Subjective Currently no c/o at this time. Rehab PT IP Eval Objective Appearance Patient Behavior Appropriate Patient Orientation Person,Place,Time Difficulty following instructions none Speech Pattern Clear Ambulation Patient Able to Ambulate No Balance Ability to Arise Able, uses arms to help Sitting Balance Steady, safe Dynamic Sitting Balance Ability Good Transfers Bed Transfer Ability Independent Chair Transfer Ability Independent Rehab PT IP prob,goals,plan Problems Date of Evaluation: 03/02/23 PT IP Problems Transfers Rehab Potential Rehab Potential Good Equipment Needs Assistive Devices Wheelchair Plan PT Intervention Plan Transfers,Therapeutic Exercise PT Plan Frequency Daily Duration LOS Discharge Plan PT Discharge Plan Pt was able to independently perform a reverse long sit transfer from bed to bedside chair and should be able to do the same for transfers at home. He may need a transfer board to assist him with transfers independently. He is appropriate to return home with family assist once medically stable for d/c. G -code Required No Eval Complexity Eval Charge Codes 56951 - High Complexity PHYSICIAN CERTIFICATION: I certify the specified therapy services for Jhony Schaffer are required, authorized, and reviewed every 30 days.
--- NOTE | 2023-03-02 13:04 | HMH.OTEV ---
OT Inpatient Evaluation Rehab OT IP Evaluation Start: 03/02/23 07:17 Freq: ONCE Status: Active Protocol: Document 03/02/23 11:27 [facility] (Rec: 03/02/23 13:03 [facility] [id number]) Rehab OT IP Assessment Subjective History Pt oriented x 4 on arrival. Pt agreeable to engage in therapy evaluation. 73 year old male presented to the ED after falling 12 feet from his roof. Denies PMHX or medication use. Pt states he was fixing roof and slide onto his rectum. The pt then slide off the roof and landed on his feet standing. Pt was admitted on 03/01/23 due to bilateral calcaneus fx's. Prior to injury, pt was independent with all ADLs and IADLs. He was very active and still drove. He did not require any type of AE during daily activities or functional transfers. Subjective I am ready to go home. Pt was educated on appropriate transfers to protect non weightbearing status on bilateral feet. Therapist educated patient on a reverse long sit transfer to get out of bed to chair. Pt was independent with this transfer after set up. Therapist also educated patient on appropriate AE to have at home for example: BSC and wheelchair. Objective Patient Orientation Person,Place,Birthday,Month Upper Extremity Gross ROM WFL Bed Mobility bed mobility-scooting,bed mobility - supine/sit,bed mobility - rolling Assist Level Supervision/Stand by Assist Level Supervision/Stand by Chair Transfer Ability Supervision/Stand by Chair Transfer Technique Forward/Backward Scoot Rehab OT IP prob,goals,plan Problems Date of Evaluation: 03/02/23 Rehab Potential Rehab Potential Good Equipment Needs Assistive Devices Wheelchair Plan OT intervention Plan Bed Mobilit
--- NOTE | 2023-03-03 14:40 | CARE MANAGER ---
Contacted patient related to hospital discharge. He states he followed up with MD today and he is referring him to a different doctor. They deny any questions or concerns at this time. ACE Jiménez
== END 2023-03-02 14:16 | disposition home or self-care (01) ==
LOC: ER 21:34 → 2ND 22:46
PROVIDERS: Nurse Practitioner Critical Care Medicine; Admitting Provider Internal Medicine Adolescent Medicine; Emergency Provider Emergency Medicine; Visit Provider Internal Medicine Adolescent Medicine
DX: S92.001A Unspecified fracture of right calcaneus, initial encounter for closed fracture (principal); S92.002A Unspecified fracture of left calcaneus, initial encounter for closed fracture; F17.210 Nicotine dependence, cigarettes, uncomplicated; W13.2XXA Fall from, out of or through roof, initial encounter
CPT/HCPCS: G0378; 36415; 71045; 72131; 72170; 73590; 73610; 73630; 73650; 73700; 80048; 85025; 85610; 97163; 97166; 97530; 99285; J2405

== ENCOUNTER 2023-09-13 09:00 | Outpatient (RCR) | payer MEDICARE, SELFPAY | END 2023-09-13 10:30 | disposition home or self-care (01) | LOC: PT 09:00 | PROVIDERS: Visit Provider Podiatrist Foot & Ankle Surgery | DX: M79.671 Pain in right foot; S92.062D Displaced intraarticular fracture of left calcaneus, subsequent encounter for fracture with routine healing; S92.061D Displaced intraarticular fracture of right calcaneus, subsequent encounter for fracture with routine healing | CPT/HCPCS: 97010; 97014; 97033; 97035; 97110; 97112; 97140; 97163; 97164; 97530; G0283 ==

== ENCOUNTER 2024-05-03 08:13 | Day surgery (SDC) | payer MEDICARE, SELFPAY ==
[2024-05-01 13:52] VITALS: BMI 18.9
--- NOTE | 2024-05-03 08:25 | P.PCN_ITS ---
Procedure: Date: 05/03/24 Patient Date of :: 1950 Procedure Performed:: Total colonoscopy to terminal ileum with polypectomy Indications:: Patient is a 74-year-old male presents for surveillance colonoscopy. He had previously undergone right inguinal hernia repair for recurrent right inguinal hernia by Dr. Shelley in September 2020. Prior to that in July 2020 Dr. Shelley performed colonoscopy and this revealed relatively fair bowel preparation, significant colonic spasticity, moderate tortuosity, small polyp at 35 cm which was removed and proven to be tubular adenoma. Given the polyp, colonic spastici ty and tortuosity recommendations were for 3-5 year follow-up colonoscopy. Patient states that he is not interested in having another colonoscopy after this one. Performing Provider:: Daljit Rodrigez MD Referring Provider:: Arjun Maynard MD Sedation:: MAC sedation Procedure:: Patient history was obtained and appropriate physical examination was performed. Patient's medications and allergies were reviewed. Informed consent was obtained after explaining the benefits, alternatives, and risks of the procedure including, but not limited to, bleeding, perforation, missed lesions, and adverse reaction to anesthesia medications. Patient was transported to endoscopy procedure room. Patient was connected to monitoring devices. Throughout the procedure the patient's blood pressure, pulse, and oxygen saturations were monitored continuously. Patient identification and planned procedure were verified by the staff. Patient was positioned in lateral decubitus position. Digital anorectal exam was performed. Variable stiffness Olympus colonoscope was inserted and advanced under direct visualization to the cecum. Adequacy of the colonic preparation was noted. The colonoscope was advanced a short distance into the terminal ileum. The colonoscope was then slowly withdrawn while carefully examining the color, texture, anatomy, and integrity of the mucosoa circumferentially. Within the rectum retroflexion was performed. Colonoscope was then withdrawn. Impression: Colonic preparation was good. In the descending colon there was a subtle ridge polyp. With some difficulty due to positioning and manipulation of the colonoscope this was able to be removed partially using cold snare and then residual polyp and pieces retrieved using biopsy forceps. This was at approximately 50 cm but sent as descending colon polyp. There were rare diverticuli. In the rectosigmoid region there were several hyperplastic appearing polyps which were removed with biopsy forceps. He had some nikolai reciable hemorrhoidal prolapse in the left posterior lateral location with minor irritation. Findings:: Subtle ridge polyp at 50 cm Rare diverticulosis Probable hyperplastic appearing rectosigmoid polyps Hemorrhoidal prolapse, irritated, at left posterior lateral location Recommendations:: Repeat colonoscopy pending pathology Complications:: None immediately apparent Estimated blood obtained (mL): 1 Colonoscopy Component Colonoscopy Component Was a colonoscopy performed during today's procedure?: Yes Recommended follow up colonoscopy of at least 10 years?: No If no, follow up colonoscopy recommended in ___ years?: See above Reason for not recommending >/= 10 yr follow-up interval?: See above
[2024-05-03 08:35] VITALS: BP 117/75; PULSE 70; RESP 18; TEMP 36.2; O2SAT 98
[2024-05-03] MEDS: LACTATED RINGERS 1000ML 1,000 ML 25 ML IV (08:51)
[2024-05-03 08:56] VITALS: O2SAT 98
[2024-05-03 09:45] VITALS: BP 89/50; PULSE 74; RESP 16; TEMP 36.4; O2SAT 94
[2024-05-03 09:55] VITALS: BP 95/53; PULSE 68; RESP 16; TEMP 36.4; O2SAT 96
[2024-05-03 10:05] VITALS: BP 102/62; PULSE 64; RESP 16; TEMP 36.4; O2SAT 96
[2024-05-03 10:15] VITALS: BP 108/67; PULSE 64; RESP 16; TEMP 36.4; O2SAT 98
--- NOTE | 2024-05-03 11:19 | EXP.ANES.CKL ---
[facility] Disclaimer: The information contained in this section may have been updated after the patient was seen, as this information can be updated by other users. Medical History History of COVID-19 Macular degeneration Surgical History History of foot surgery H/O hernia repair History of appendectomy Family History Other No significant family history Social History (Updated 05/03/24 @ 08:50 by Lola Webb RN) Smoking Status: Current every day smoker tobacco type: pipe second hand exposure: Yes alcohol intake: never substance use type: denies use current occupational status: retired Travel in the last 8 weeks: None household members: spouse and family housing: house current occupational exposures/hazards: No caffeine: Yes [facility] Anesthesia Checklist Patient Identification Patient Identification: Arm Band and Family Structural Data Admitted From: Home Planned Operative Procedure/s: Colonoscopy Consent for Planned Operative Procedure(s) Verified: Yes Verified Documents: Surgical Consent and History and Physical Additional verifications Patient : No Anesthesia Reactions: No Hx Blood Transfusions: No Blood Transfusion Reaction: No Cephalosporin Allergy: No Previous Colonoscopy: Yes Airway Assessment Mallampati Score:: Class II C-Spine Mobility Assessed: Yes TMJ Mobility Assessed: Yes Dentition: Good Dentition Neurological Assessment Level of Consciousness: Awake, Alert, Appropriate and Follows Commands Hx Seizures: No Numbness or tingling in extremities: No Anesthesia Plan Anesthesia Risk discussed: Yes ASA Class: II Anesthesia Type: MAC Preoperative Comments Pre-Operative Comments: screening
== END 2024-05-03 10:19 | disposition home or self-care (01) ==
PROVIDERS: PCP Internal Medicine Adolescent Medicine; Visit Provider Surgery
PROC: 0DJD8ZZ Inspection of Lower Intestinal Tract, Via Natural or Artificial Opening Endoscopic (ICD-10-PCS; CPT 45378; principal; 2024-05-03 09:30)
DX: Z86.0101 Personal history of adenomatous and serrated colon polyps (principal); K63.5 Polyp of colon; K57.30 Diverticulosis of large intestine without perforation or abscess without bleeding; K64.8 Other hemorrhoids
CPT/HCPCS: 45380; 88305; J7120